=== PATIENT | female | born 1980 | race Caucasian/White ===

== ENCOUNTER 2023-12-26 08:18 | Outpatient (REF) | payer BC, SELFPAY ==
--- NOTE | ~2023-12-26 | XR_ITS ---
EXAMINATION: XR BOTH KNEES AP STANDING XR RIGHT KNEE, 2 VIEWS CLINICAL INFORMATION: Pain, left knee. Pain and osteoarthritis in the right knee. COMPARISON: None. TECHNIQUE: Standing AP view of both knees and lateral and sunrise views of the right knee. FINDINGS: LEFT KNEE: The bones, joints, and soft tissues are normal on the single AP view. RIGHT KNEE: No fracture or joint effusion. Alignment is anatomic. Joint spaces are well maintained. No abnormal soft tissue calcification. Soft tissues are unremarkable. XR/XR knee LT 1V IMPRESSION: 1. Normal right knee radiographs. 2. Normal left knee on the single AP view. Electronically signed by: Marcello Doshi MD 12/29/2023 11:01 AM EDT
--- NOTE | ~2023-12-26 | XR_ITS ---
EXAMINATION: XR BOTH KNEES AP STANDING XR RIGHT KNEE, 2 VIEWS CLINICAL INFORMATION: Pain, left knee. Pain and osteoarthritis in the right knee. COMPARISON: None. TECHNIQUE: Standing AP view of both knees and lateral and sunrise views of the right knee. FINDINGS: LEFT KNEE: The bones, joints, and soft tissues are normal on the single AP view. RIGHT KNEE: No fracture or joint effusion. Alignment is anatomic. Joint spaces are well maintained. No abnormal soft tissue calcification. Soft tissues are unremarkable. XR/XR knee RT 3V IMPRESSION: 1. Normal right knee radiographs. 2. Normal left knee on the single AP view. Electronically signed by: Marcello Doshi MD 12/29/2023 11:01 AM EDT
== END 2023-12-26 08:19 | disposition home or self-care (01) ==
LOC: HO.HOSX 08:18
PROVIDERS: PCP Neuromusculoskeletal Medicine, Sports Medicine
DX: M17.11 Unilateral primary osteoarthritis, right knee (principal); M25.562 Pain in left knee
CPT/HCPCS: 73560; 73562

== ENCOUNTER 2023-12-26 09:27 | Outpatient (AMB) | payer BC, SELFPAY ==
--- NOTE | 2023-12-26 09:33 | A.OFFVIS_ITS ---
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 Patient reports since September she started getting sharp pain on the posterior aspect of her knee and tenderness with palpitation on the lateral aspect. She expresses her daughter places softball, she was squatting down for a prolonged period catching for her daughter and kneeling down. 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 Currently during this visit she states she can feel the pain in the posterior aspect. She has tried icing and wearing a brace for 2 hours a day but does not find relief. She is looking for a third opinion in today's visit. MRI done @ [facility] 11/01/23. 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 The patient reports that her pain used to be in the medial knee, but it is now located primarily in the posterior aspect, and that she has been improving with time, and as she has to kneel and squat less. The patient also reports that she has tried bracing and ice, to minimal effect. Patient previously had MRI done, and brings the report with her today. 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 Review of Systems Const All systems reviewed & are unremarkable except as noted in HPI and below Physical Exam Vital Signs: BMI result Body Mass Index 26.2 Extrem Other: Patient's R knee normal to inspection No erythema, ecchymosis, edema noted No lacerations, abrasions, open areas No evidence of infection Patient reports no tenderness to palpation of the anterior knee, medial or later al joint lines, patella, quad tendon, patellar tendon, or posterior knee Patient is able to extend the knee to 0 degrees without difficulty Patient is able to flex the knee to 120 degrees without difficulty Negative Minh's Negative anterior drawer No ligamentous laxity with varus/valgus testing Distal sensation intact Capillary refill brisk Results Reviewed Results Reviewed: X rays taken in the office today and independently reviewed by me reveal no fracture or acute bony abnormality MRI results reviewed, reveal chronic injury to MCL of right knee, no acute internal derangement or bony abnormality Assessment & Plan Assessment & Plan (1) Right knee pain: Code(s): M25.561 - Pain in right knee Category: Medical Plan 1. Right knee pain Patient is informed that due to negative MRI and unremarkable testing in the office today, index of suspicion for fracture or acute internal derangement s very low Patient is informed about findings of chronic MCL injury, but is not experiencing any symptoms in the medial knee Patient is referred to PT for strengthening, ROM, stabilization of R knee Patient is amenable to this plan Patient will follow up PRN with any acute concerns Orders: Orders XR knee LT 1V 12/26/23 M25.562 - Pain in left knee XR knee RT 3V 12/26/23 M17.11 - Unilateral primary osteoarthritis, right knee Coding Level of Care Code New Pt Level 3 (78471) Diagnoses Right knee pain M25.561
[2023-12-26 09:35] VITALS: BMI 26.2
== END 2023-12-26 10:37 | disposition home or self-care (01) ==
PROVIDERS: PCP Neuromusculoskeletal Medicine, Sports Medicine
DX: M25.561 Pain in right knee (principal)
CPT/HCPCS: 99203

== ENCOUNTER 2024-02-12 08:00 | Outpatient (RCR) | payer BC, SELFPAY ==
--- NOTE | 2024-01-19 09:51 | MHC.PT.EP ---
[facility] [place] Office [place] Office [place] Office [address] [phone] F: [phone] F: [phone] F: [phone] F: [phone] Physical Therapy Plan of Care Date of Evaluation: 01/19/24 Date of Surgery: n/a Diagnosis: R knee pain Assessment: Patient is a 43 year old female presenting to PT with complaints of pain in her R knee. Pt reports onset of pain began August 2023 due to squatting in deep squat while catching for her daughter. She presents today with impairments pain, knee strength, hip strength, tenderness to palpation. 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 Clinical presentation today is most consistent with signs and sx associated with R knee pain and pt will benefit from skilled PT 2 week x 4 weeks to address the following problems and impairments noted upon evaluation: pain, knee strength, hip strength, tenderness to palpation. These problems limit the patient with the following functional activities: ambulating, running, ADLs, squatting. The prescribed treatment plan of care is medically necessary. Co-morbidities of none were identified and taken into considerations of plan of care. Pt was educated on HEP, role of PT, prognosis, POC. Frequency and Duration: The patient will be seen 2 x week x 4 weeks Short Term Goals: Pt will demonstrate improved knee MMT strength to 5/5 in 2 weeks. Pt will demonstrate improved hip MMT strength by 1/3 grade in 2 weeks for improved lumbopelvic stability. Mcfp Goals: Pt will demonstrate improved LEFI score by 9 points in 4 weeks for improved functional mobility. Pt will demonstrate ability to ambulate with min to no pain in 4 weeks for return to PLOF. Treatment Plan: Modalities to reduce pain, spasms and effusion. Manual therapy to restore motion and function. Therapeutic exercise to improve strength and flexibility. Neuromuscular re-education for posture and balance. Therapeutic activities to return to functional activities of daily living. Electronically signed by: Trina Liz, PT, DPT, ATC Please sign and return to therapist. Thank you for your referral.
--- NOTE | 2024-03-13 08:24 | MHC.PT.DC ---
[facility] [place] Office [place] Office [place] Office [address] [phone] F: [phone] F: [phone] F: [phone] F: [phone] Physical Therapy Discharge Report Diagnosis: R knee pain Date of Surgery: n/a Date of Evaluation: 01/19/24 Date of Discharge: 03/13/24 Treatments to Date: 4 Cancellations to Date: 6 No Shows to Date: 0 Discharge Status: Patient Elected to Stop Discharge Summary: Pt has not returned to skilled PT in >30 days and therefore to be d/c per plan at last visit. Electronically signed by: Trina Liz, PT, DPT, ATC Please sign and return to therapist. Thank you for your referral.
== END 2024-03-13 08:24 | disposition home or self-care (01) ==
LOC: HO.PTCHIC 08:00
PROVIDERS: PCP Neuromusculoskeletal Medicine, Sports Medicine
DX: M25.561 Pain in right knee (principal)
CPT/HCPCS: 97110; 97161